=== PATIENT | male | born 1985 | race Caucasian/White ===

== ENCOUNTER 2023-09-25 17:06 | Emergency (ER) | payer MEDICAID, SELFPAY ==
[2023-09-25 18:30] VITALS: BP 149/92; PULSE 87; RESP 18; TEMP 36.8; O2SAT 98; BMI 38.3
--- NOTE | 2023-09-25 18:41 | ED_ITS ---
Discharge Plan Disposition Patient Disposition: Home, Self-Care Condition: Good Prescriptions Prescriptions: New clindamycin HCl 300 mg capsule 300 mg PO Q8H 7 Days Qty: 21 0RF No Action cephalexin [Keflex] 500 mg capsule 500 mg PO BID 10 Days Qty: 20 0RF insulin glargine [Lantus Solostar U-100 Insulin] 100 unit/mL (3 mL) insulin pen See Rx Instructions .ROUTE .COMPLEX Patient Comments: INJECT 10 UNITS UNDER THE SKIN ONCE DAILY. INCREASE BY 2 UNITS EVERY 3 DAYS UNTIL BG < 140MMHG. MAX 80 UNITS/DAY. Rx Instructions: INJECT 10 UNITS UNDER THE SKIN ONCE DAILY. INCREASE BY 2 UNITS EVERY 3 DAYS UNTIL BG < 140MMHG. MAX 80 UNITS/DAY. Referrals Follow up/Referrals: Kyaw Ulrich [Primary Care Provider] - See instructions Activity Restrictions/Add. Instructions Additional Instructions/Restrictions: get into dentist jameel if symptoms worsen or no improvement return Clinical Impressions Clinical Impression: Abscessed tooth Instructions Patient Instructions: DI for Tooth Abscess Discharge ED Provider: Young ([facility] General Stated complaint: swollen left jaw,toothache Mode of Arrival: Ambulatory Source of Information: Patient Limitations: No Limitations Time Seen by Provider: 09/25/23 18:41 Description of Symptoms (Recalled from Triage Doc. by RN): Pt broke a tooth off upper left side. He has not been able to see dentist. He took abx given and made it feel better. He has been off and woke up two days ago with swollen and pain. HEENT Symptoms (Recalled from RN notes): Yes Resp Symptoms (Recalled from RN notes): No Skin Symptoms (Recalled from RN notes): No MS Symptoms (Recalled from RN notes): No Functional Status (Recalled from RN notes): n/a History of Present Illness Provider Complaint: 38 yr old male presents for dental pain. Pt broke a tooth off upper left side. He has not been able to see dentist. He took abx given and made it feel better 2 weeks ago. He has been off and woke up two days ago with swollen and pain. Related Data Home Medications Medication Instructions Recorded Confirmed insulin glargine 100 unit/mL (3 See Rx Instructions .Route .COMPLEX 09/25/23 09/25/23 mL) subcutaneous pen (Lantus Solostar U-100 Insulin) Previous Rx's Medication Instructions Recorded cephalexin 500 mg capsule (Keflex) 500 mg PO BID 10 days #20 caps 06/14/18 clindamycin HCl 300 mg capsule 300 mg PO Q8H 7 days #21 caps 09/25/23 Allergies Allergy/AdvReac Type Severity Reaction Status Date / Time Penicillins Allergy Verified 09/25/23 18:41 Worker's Comp Is this a Worker's Comp case?: No PFSH PFS Disclaimer: The information contained in this section may have been updated after the patient was seen, as this information can be updated by other users. Social History , [employer]) Smoking Status: Never smoker alcohol intake: never substance use type: denies use current occupational status: employed Travel in the last 8 weeks: None household members: significant other housing: house ROS Obtained: Yes All systems reviewed & no additional complaints except as documented Constitutional Constitutional: Reports system reviewed and no additional complaints, except as documented, Reports as per HPI and Reports other (dental pain) Eyes Eyes: Reports system reviewed and no additional complaints, except as documented ENT Ears, Nose, Mouth, and Throat: Reports system reviewed and no additional complaints, except as documented, Reports as per HPI, Reports dental pain and Reports facial pain Cardiovascular Cardiovascular: Reports system reviewed and no additional complaints, except as documented Respiratory Respiratory: Reports system reviewed and no additional complaints, except as documented Gastrointestinal Gastrointestingal: Reports system reviewed and no additional complaints, except as documented Integumentary/Breasts Skin/Breast: Reports system reviewed and no additional complaints, except as documented Neurologic Neurologic: Reports system reviewed and no additional complaints, except as documented Endocrine Endocrine: Reports system reviewed and no additional complaints, except as documented Physical Exam General General appearance: alert and in no apparent distress Expanded Head Exam Head image: 2 1. swelling Eye Eye exam: Present normal appearance and PERRL ENT ENT exam: Present mucous membranes moist Expanded ENT Exam Teeth numbered Image: 2 1. Fractured Respiratory Respiratory exam: Present normal lung sounds bilaterally Cardiovascular Cardiovascular exam: Present regular rate and normal rhythm Neurological Exam Neurological exam: Present alert and oriented X3 Skin Skin exam: Present warm and intact Medical Decision Making Medical Records Medical records reviewed: Yes I reviewed the patient's medical records. Omar Inquiry Pt receiving controlled substance: No Omar was queried for this patient: No Vital Signs: 09/25/23 18:30 Temperature 98.2 F Temperature Source Oral Pulse Rate [Right Radial] 87 Respiratory Rate 18 Blood Pressure [Right Arm] 149/92 H Blood Pressure Mean [Right Arm] 111 Blood Pressure Source [Right Arm] Automatic Cuff Blood Pressure Position [Right Arm] Sitting 02 Sat by Pulse Oximetry 98 Oxygen Delivery Method Room Air Lab Data Lab results reviewed: Yes I reviewed the patient's lab results.
--- NOTE | 2023-09-25 18:44 | PC.NURSE ---
Pt took cephalexin in 05/2018 from [facility]. Spoke with diogenes MARY at [facility] about allergy of PCN and rocephin shot. He states that its okay to give.
[2023-09-25] MEDS: LIDOCAINE 2% VISCOUS SOL 15ML UDC 15 ML PO (18:50)
[2023-09-25] MEDS: TETRACAINE/BENZOCAINE/BUTAMBEN 56 GM SPRAY TP (18:50)
[2023-09-25] MEDS: CLINDAMYCIN 150MG CAPSULE 300 MG PO (18:52)
[2023-09-25 18:59] VITALS: BP 149/92; PULSE 87; RESP 18; TEMP 36.8; O2SAT 98
== END 2023-09-25 18:59 | disposition home or self-care (01) ==
PROVIDERS: Emergency Provider Nurse Practitioner Family; PCP Family Medicine
DX: K04.7 Periapical abscess without sinus (principal)
CPT/HCPCS: 96372; 99204; 99212; G0463

== ENCOUNTER 2023-11-29 15:11 | Emergency (ER) | payer MEDICAID, SELFPAY ==
[2023-11-29 15:12] VITALS: BP 161/80; PULSE 96; RESP 19; TEMP 36.8; O2SAT 99; BMI 45.1
[2023-11-29 15:49] VITALS: BP 143/80; PULSE 79; RESP 17; TEMP 36.8; O2SAT 98
--- NOTE | 2023-11-29 15:49 | ED_ITS ---
Discharge Plan Disposition Patient Disposition: Home, Self-Care Prescriptions Prescriptions: New clindamycin HCl 150 mg capsule 450 mg PO Q8H 10 Days Qty: 90 0RF No Action cephalexin [Keflex] 500 mg capsule 500 mg PO BID 10 Days Qty: 20 0RF insulin glargine [Lantus Solostar U-100 Insulin] 100 unit/mL (3 mL) insulin pen See Rx Instructions .ROUTE .COMPLEX Patient Comments: INJECT 10 UNITS UNDER THE SKIN ONCE DAILY. INCREASE BY 2 UNITS EVERY 3 DAYS UNTIL BG < 140MMHG. MAX 80 UNITS/DAY. Rx Instructions: INJECT 10 UNITS UNDER THE SKIN ONCE DAILY. INCREASE BY 2 UNITS EVERY 3 DAYS UNTIL BG < 140MMHG. MAX 80 UNITS/DAY. clindamycin HCl 300 mg capsule 300 mg PO Q8H 7 Days Qty: 21 0RF Referrals Follow up/Referrals: Sindy Loomis DPM [Staff Physician] - See instructions Kyaw Ulrich [Primary Care Provider] - See instructions Activity Restrictions/Add. Instructions Additional Instructions/Restrictions: You have a diabetic ulcer that is superficial and has no significant necrotic tissue that needs to be surgically debrided at this point. Please keep this mechanically offloaded and by that I mean you do not need to have repetitive trauma to this such as with your shoes or with walking on this. You need to stay off of this and or have diabetic shoes that prevent significant friction on this area. I would recommend that you put a petroleum based ointment such as Neosporin on this thick gauze and try to stay off of it is much as possible until this is healing. Additionally it is imperative that you have close follow-up either with wound care or with our front end specialist Dr. Loomis. Clinical Impressions Clinical Impression: Diabetic foot ulcers Stand Alone Forms Stand Alone Forms: Work/School Release Instructions Patient Instructions: DI for Laceration Repair Print Language Print Language: Pakistani Discharge ED Provider: Fracisco Delcid Adult [facility] General Chief complaint: Wound/Laceration Stated complaint: RT foot open blister, diabetic Time Seen by Provider: 11/29/23 15:25 Mode of Arrival: Ambulatory Source of Information: Patient Limitations: No Limitations Description of Symptoms (Recalled from ER Triage Doc. by RN): pt presents to ED with c/o sore on right foot. pt reports sore has been on foot for the past week. pt has known diabetes. History of Present Illness HPI narrative: Patient is a 38-year-old male presenting today with a diabetic ulcer on his right foot. This is located on the plantar aspect of his right foot tunneling going on a few days no significant erythema or pus or fevers or black tissue. He does have a history of a severe infection requiring a toe amputation in the past is very concerned about this. States that he works all day every day on his feet does not have diabetic shoes. Did not have any type of wound management. Related Data Home Medications ?Medication ?Instructions ?Recorded ?Confirmed insulin glargine 100 unit/mL (3 See Rx Instructions .Route .COMPLEX 09/25/23 09/25/23 mL) subcutaneous pen (Lantus Solostar U-100 Insulin) Previous Rx's ?Medication ?Instructions ?Recorded cephalexin 500 mg capsule (Keflex) 500 mg PO BID 10 days #20 caps 06/14/18 clindamycin HCl 300 mg capsule 300 mg PO Q8H 7 days #21 caps 09/25/23 clindamycin HCl 150 mg capsule 450 mg (3 x 150 mg) PO Q8H 10 days 11/29/23 #90 caps Allergies Allergy/AdvReac Type Severity Reaction Status Date / Time Penicillins Allergy Verified 09/25/23 18:41 [facility] Disclaimer: The information contained in this section may have been updated after the patient was seen, as this information can be updated by other users. Social History , [employer]) Smoking Status: Current every day smoker alcohol intake: never substance use type: denies use current occupational status: employed Travel in the last 8 weeks: None household members: significant other housing: house ROS Obtained: Yes All systems reviewed & no additional complaints except as documented Physical Exam General General appearance: alert and in no apparent distress Respiratory Respiratory exam: Present normal lung sounds bilaterally Cardiovascular Cardiovascular exam: Present regular rate Extremities Exam Extremities exam: Present other (Neurovascular intact there is a surgically absent toe in the right foot there is a 2 cm superficial diabetic ulcer extending through the soft tissue into the fat no muscle or necrotic tissue noted mild erythema no purulence) Neurological Exam Neurological exam: Present alert and oriented X3 Medical Decision Making Omar Inquiry Pt receiving controlled substance: No Vital Signs: 11/29/23 15:12 Temperature 98.2 F Temperature Source Oral Pulse Rate [Left Radial] 96 H Respiratory Rate 19 Blood Pressure [Right Arm] 161/80 H Blood Pressure Mean [Right Arm] 107 02 Sat by Pulse Oximetry 99 Oxygen Delivery Method Room Air Medical Decision Narrative: 38-year-old presented today with superficial diabetic ulcer on the plantar aspect of his right foot. Will need close wound management. There is not ap pear to be any necrosis or need for surgical debridement. Overall appears not infected there may be some very mild erythema and we will err on the side of caution and give the patient some antibiotics. He has a penicillin allergy will prescribe clindamycin. He has been advised to mechanically offload this he has been instructed as to what that means. He will try to stay off work for a few days to discuss this with his employer. He also will follow-up with our front end specialist for wound management. I advised that he keep topical antibiotic ointment on this thick gauze and to prevent further trauma to this area while this is healing. He is aware that this could get significantly worse. No indication for any labs imaging IV antibiotics etc. at the moment. He will closely follow-up with her front end specialist for wound care and management. Critical Care Critical Care Time Critical Care Time: No
[2023-11-29] MEDS: BACITRACIN OINT 0.9GM UDP 1 EACH TP (15:55)
== END 2023-11-29 16:08 | disposition home or self-care (01) ==
PROVIDERS: Emergency Provider Student in an Organized Health Care Education/Training Program; PCP Family Medicine
DX: E11.621 Type 2 diabetes mellitus with foot ulcer (principal); L97.519 Non-pressure chronic ulcer of other part of right foot with unspecified severity; Z79.4 Long term (current) use of insulin; F17.210 Nicotine dependence, cigarettes, uncomplicated
CPT/HCPCS: 99283